=== PATIENT | male | born 1980 | race Two or more races ===

== ENCOUNTER 2024-12-23 09:22 | Emergency (ER) | payer BC | END 2024-12-23 11:04 | disposition home or self-care (01) | LOC: EDBD 09:22 → MW.ED 09:22 | DX: S89.91XA Unspecified injury of right lower leg, initial encounter (principal); Z75.3 Unavailability and inaccessibility of health-care facilities; I10 Essential (primary) hypertension | CPT/HCPCS: 99283 ==